=== PATIENT | female | born 1935 | race Caucasian/White ===

== ENCOUNTER 2019-03-13 12:33 | Observation (INO) ==
[2019-03-13] MEDS ORDERED: 0.9 % Sodium Chloride 1,000 ML IVC ONE (12:38)
[2019-03-13 13:48] LABS: Basophils % 0.2 %; Eosinophils % 0.2 %; Hematocrit 35.2 % (35.3-44.9); Hemoglobin 11.8 g/dL (11.5-15.4); Immature Granulocytes % 0.7 % (0-4); Lymphocytes # 1.7 K/mcL (0.6-4.6); Lymphocytes % 7.8 %; Mean Corpuscular HGB Conc 33.5 g/dL (31.6-35.5); Mean Corpuscular Hemoglobin 30.2 pg (28.0-33.3); Mean Platelet Volume 9.7 fL (9.4-12.4); Monocytes % 9.1 %; Neutrophils # 17.6 K/mcL (1.6-8.9); Platelet Count 281 K/mcL (140-400); Red Blood Count 3.91 M/mcL (3.82-4.97); Red Cell Distribution Width 13.4 % (11.5-14.5); White Blood Count 21.5 K/mcL (4.3-11.1)
[2019-03-13 14:03] LABS: Alanine Aminotransferase 19 Units/L (7-52); Albumin/Globulin Ratio 1.4 (1.1-2.2); Alkaline Phosphatase 79 Units/L (34-104); Aspartate Amino Transferase 21 Units/L (13-39); BUN/Creatinine Ratio 24 (6-26); Bilirubin,Total 0.8 mg/dL (0.3-1.0); Blood Urea Nitrogen 22 mg/dL (8-23); Calcium 9.5 mg/dL (8.6-10.3); Carbon Dioxide 24 mEq/L (23-29); Chloride 97 mEq/L (98-107); Globulin 2.9 g/dL (2.4-3.5); Glucose 139 mg/dL (70-105); Osmolality,Calculated 280 (280-300); Potassium 3.9 mEq/L (3.5-5.1); Sodium 132 mEq/L (136-145); Total Protein 6.9 g/dL (6.4-8.9); eGFR For African Americans > 60 (> 60); eGFR For Non-African Americans 59 (> 60)
[2019-03-13 14:10] LABS: Troponin I < 0.03 ng/mL (< 0.04)
[2019-03-13] MEDS ORDERED: cefTRIAXone 1,000 MG in Water for inj. (sterile) 10 ML IVP ONE (14:29)
[2019-03-13] MEDS ORDERED: Azithromycin 500 MG in 0.9 % Sodium Chloride 250 ML IVPB ONE (14:30)
[2019-03-13 14:48] LABS: Bilirubin,Urine Negative (Negative); Blood,Urine Negative (Negative); Clarity,Urine Slightly Cloudy (Clear); Color,Urine Yellow (Yellow); Glucose,Urine (UA) Normal (Normal); Ketones,Urine Negative (Negative); Leukocyte Esterase,Urine Small (Negative); Nitrite,Urine Negative (Negative); Protein,Urine Negative (Neg-Trace); Specific Gravity,Urine 1.015 (1.010-1.025); Urobilinogen,Urine Normal (Normal)
[2019-03-13 14:58] LABS: Bacteria,Urine Few per hpf (None-Few); Hyaline Casts,Urine Few per lpf (None-Few); RBC,Urine 0-3 per hpf (0-3); Squamous Epithelial Cell,Urine Moderate per lpf (None-Few); Transitional Epi Cells,Urine Few per hpf (None-Few); WBC,Urine 15-30 per hpf (0-3)
[2019-03-13] MEDS ORDERED: Mag Hydrox/Al Hydrox/Simeth 30 ML UDC PO PRN (17:20)
[2019-03-13] MEDS ORDERED: Naloxone 0.4 MG/ML INJ IVP PRN (17:20)
[2019-03-13] MEDS ORDERED: Ondansetron ODT 4 MG TAB.RAPDIS SL PRN (17:20)
[2019-03-13] MEDS: 0.9 % Sodium Chloride 1,000 ML IV SCH (20:19)
[2019-03-14] MEDS: Levothyroxine 25 MCG TABLET PO SCH (05:05)
[2019-03-14 08:36] LABS: Basophils # 0.1 K/mcL (0.0-0.2); Basophils % 0.4 %; Eosinophils % 0.3 %; Hemoglobin 11.3 g/dL (11.5-15.4); Immature Granulocytes % 0.5 % (0-4); Lymphocytes # 2.6 K/mcL (0.6-4.6); Lymphocytes % 17.7 %; Mean Corpuscular HGB Conc 33.2 g/dL (31.6-35.5); Mean Corpuscular Hemoglobin 29.8 pg (28.0-33.3); Mean Corpuscular Volume 89.7 fL (83.0-100.0); Mean Platelet Volume 9.8 fL (9.4-12.4); Monocytes # 1.4 K/mcL (0.0-1.3); Monocytes % 9.7 %; Neutrophils # 10.3 K/mcL (1.6-8.9); Platelet Count 281 K/mcL (140-400); Red Blood Count 3.79 M/mcL (3.82-4.97); Red Cell Distribution Width 13.6 % (11.5-14.5); Segmented Neutrophils % 71.4 %; White Blood Count 14.4 K/mcL (4.3-11.1)
[2019-03-14 09:44] LABS: BUN/Creatinine Ratio 16 (6-26); Blood Urea Nitrogen 13 mg/dL (8-23); Calcium 9.2 mg/dL (8.6-10.3); Carbon Dioxide 23 mEq/L (23-29); Chloride 105 mEq/L (98-107); Glucose 130 mg/dL (70-105); Osmolality,Calculated 288 (280-300); Potassium 3.9 mEq/L (3.5-5.1); Sodium 138 mEq/L (136-145); eGFR For African Americans > 60 (> 60); eGFR For Non-African Americans > 60 (> 60)
[2019-03-14 10:41] LABS: Adenovirus Not Detected (Not Detect); Bordetella Pertussis Not Detected (Not Detect); Chlamydophila pneumoniae Not Detected (Not Detect); Coronavirus 229E Not Detected (Not Detect); Coronavirus HKU1 Not Detected (Not Detect); Coronavirus NL63 Not Detected (Not Detect); Coronavirus OC43 Not Detected (Not Detect); Human Metapneumovirus Not Detected (Not Detect); Human Rhinovirus/Enterovirus Not Detected (Not Detect); Influenza A Subtype 2009 H1 Not Detected (Not Detect); Influenza B Not Detected (Not Detect); Mycoplasma pneumoniae Not Detected (Not Detect); Parainfluenza Virus 1 Not Detected (Not Detect); Parainfluenza Virus 2 Not Detected (Not Detect); Parainfluenza Virus 3 Not Detected (Not Detect); Parainfluenza Virus 4 Not Detected (Not Detect); Respiratory Syncytial Virus Not Detected (Not Detect)
[2019-03-14] MEDS ORDERED: Azithromycin 500 MG in 0.9 % Sodium Chloride 250 ML IVPB SCH (15:00)
[2019-03-14] MEDS ORDERED: cefTRIAXone 2,000 MG in Water for inj. (sterile) 20 ML IVP SCH (15:00)
[2019-03-14] MEDS: 0.9 % Sodium Chloride 1,000 ML IV SCH (19:43)
[2019-03-14] MEDS: Maxitrol Opth OINT 3.5 GM TUBE BOTH EYES SCH ×2 (20:22→23:34)
[2019-03-14] MEDS: Ipratropium/Albuterol Neb 3 ML IH SCH (22:19)
[2019-03-15] MEDS: Ipratropium/Albuterol Neb 3 ML IH SCH ×2 (03:44→10:10)
[2019-03-15] MEDS: Levothyroxine 25 MCG TABLET PO SCH (05:14)
[2019-03-15 06:46] VITALS: BP 138/70
[2019-03-15] MEDS: Maxitrol Opth OINT 3.5 GM TUBE BOTH EYES SCH (07:47)
[2019-03-15] MEDS ORDERED: Azithromycin 250 MG TABLET PO SCH (09:00)
[2019-03-15] MEDS ORDERED: Aspirin Enteric Coated 81 MG Tablet PO SCH (09:00)
[2019-03-15 09:53] LABS: Basophils # 0.1 K/mcL (0.0-0.2); Basophils % 0.5 %; Eosinophils # 0.1 K/mcL (0.0-0.6); Eosinophils % 0.6 %; Hematocrit 30.8 % (35.3-44.9); Hemoglobin 10.3 g/dL (11.5-15.4); Immature Granulocytes % 0.7 % (0-4); Lymphocytes # 1.7 K/mcL (0.6-4.6); Lymphocytes % 15.6 %; Mean Corpuscular HGB Conc 33.4 g/dL (31.6-35.5); Mean Corpuscular Hemoglobin 29.9 pg (28.0-33.3); Mean Corpuscular Volume 89.5 fL (83.0-100.0); Monocytes # 0.9 K/mcL (0.0-1.3); Monocytes % 8.4 %; Neutrophils # 7.9 K/mcL (1.6-8.9); Platelet Count 249 K/mcL (140-400); Red Blood Count 3.44 M/mcL (3.82-4.97); Red Cell Distribution Width 13.5 % (11.5-14.5); Segmented Neutrophils % 74.2 %; White Blood Count 10.6 K/mcL (4.3-11.1)
[2019-03-15 10:11] LABS: BUN/Creatinine Ratio 11 (6-26); Blood Urea Nitrogen 11 mg/dL (8-23); Carbon Dioxide 24 mEq/L (23-29); Chloride 102 mEq/L (98-107); Glucose 196 mg/dL (70-105); Osmolality,Calculated 289 (280-300); Potassium 3.8 mEq/L (3.5-5.1); Sodium 137 mEq/L (136-145); eGFR For African Americans > 60 (> 60); eGFR For Non-African Americans 54 (> 60)
[2019-03-15] MEDS ORDERED: Maxitrol Opth OINT 3.5 GM TUBE RIGHT EYE SCH (21:00)
== END 2019-03-15 11:50 | disposition home health service (06) ==
LOC: INPPIK 12:33 → EMEROOPIK 12:33 → INPPIK 17:45
PROVIDERS: ADMIT Family Medicine; ATTEND Family Medicine